=== PATIENT | male | born 1960 | race Caucasian/White ===

== ENCOUNTER 2023-01-15 17:45 | Inpatient (IN) | payer MEDICAID, MEDICARE ==
[~2023-01-15] VITALS: Ht 182.9 cm; Wt 102.1 kg
[2023-01-15 19:12] LABS: BASOPHILS % (AUTO) 0.8 % (0.0-2.0); EOSINOPHILS # (AUTO) 0.3 K/uL (0.0-0.7); EOSINOPHILS % (AUTO) 4.8 % (0.0-7.0); HEMATOCRIT 36.3 % (36.7-47.1); HEMOGLOBIN 12.6 g/dL (12.5-16.3); LYMPHOCYTES # (AUTO) 2.2 K/uL (0.8-4.8); LYMPHOCYTES % (AUTO) 36.4 % (20.5-51.5); MEAN CORPUSCULAR HEMOGLOBIN 31.3 uug (23.8-33.4); MEAN CORPUSCULAR HGB CONC 35 g/dL (32.5-36.3); MEAN CORPUSCULAR VOLUME 90.2 fL (73.0-96.2); MONOCYTES # (AUTO) 0.5 K/uL (0.1-1.30); MONOCYTES % (AUTO) 8.6 % (0.0-11.0); NEUTROPHILS % (AUTO) 49.4 % (38.5-71.5); PLATELET COUNT (AUTO) 188 K/uL (152-348); RED BLOOD CELL COUNT(AUTO) 4.02 MIL/uL (4.06-5.63); RED CELL DISTRIBUTION WIDTH 13.6 % (12.1-16.2)
[2023-01-15 19:28] LABS: ALANINE AMINOTRANSFERASE 22 U/L (16-63); ALBUMIN 3.5 g/dL (3.4-5.0); ALKALINE PHOSPHATASE 64 U/L (50-136); ASPARTATE AMINOTRANSFERASE 8 U/L (15-37); BILIRUBIN,DIRECT 0.1 mg/dL (0.0-0.2); BILIRUBIN,TOTAL 0.4 mg/dL (0.2-1.0); CALCIUM 9.5 mg/dL (8.5-10.1); CARBON DIOXIDE 24 mmol/L (21-32); CHLORIDE 105 mmol/L (98-107); CREATININE 1.4 mg/dL (0.6-1.3); GLUCOSE 197 mg/dL (74-106); POTASSIUM 4.1 mmol/L (3.5-5.1); SODIUM SERUM 140 mmol/L (136-145); TOTAL PROTEIN, SERUM 6.8 g/dL (6.4-8.2); UREA NITROGEN, BLOOD 34 mg/dL (7-18)
[2023-01-15 19:29] LABS: ETHANOL < 3 MG/DL (0-10)
[2023-01-15 19:30] LABS: ACETAMINOPHEN < 2.0 ug/mL (10-30); DIFFERENTIAL COMMENT 1
[2023-01-15] MEDS ORDERED: OLANZAPINE 10 MG VIAL IM ONE ×2 (19:30→19:36)
[2023-01-15 22:10] VITALS: BP 126/85; TEMP 97.7; O2SAT 98
[2023-01-15] MEDS ORDERED: ACETAMINOPHEN 325 MG TABLET PO PRN (22:15)
[2023-01-15] MEDS ORDERED: MAGNESIUM HYDROXIDE 30 ML LIQUID UDC PO PRN (22:15)
[2023-01-15] MEDS ORDERED: BLOOD SUGAR DIAGNOSTIC 1 EACH STRIP VI ONE (22:15)
[2023-01-15] MEDS ORDERED: MAG HYDROX/AL HYDROX/SIMETH 30 ML LIQUID UDC PO PRN (22:15)
[2023-01-16] MEDS ORDERED: GABA-532 PO (05:33)
[2023-01-16] MEDS ORDERED: FINA5TAB11 PO (05:33)
[2023-01-16] MEDS ORDERED: PROP10TA10 PO (05:33)
[2023-01-16] MEDS ORDERED: METF-442 PO (05:33)
[2023-01-16] MEDS ORDERED: PRAV40TA3 PO (05:33)
[2023-01-16 08:00] VITALS: BP 131/54; TEMP 97.2; O2SAT 97
[2023-01-16] MEDS: DIVALPROEX 250 MG TABLET.DR PO SCH ×2 (13:25→18:22)
[2023-01-16] MEDS: risperiDONE 1 MG TABLET PO SCH ×2 (13:25→20:24)
[2023-01-16 16:00] VITALS: BP 149/82; TEMP 97.6; O2SAT 97
[2023-01-16] MEDS ORDERED: HOME MED MISCELLANEOUS XX SCH (17:00)
[2023-01-16] MEDS ORDERED: DEXTROSE 50% 50 ML DISP.SYRIN IV PRN (17:15)
[2023-01-16] MEDS ORDERED: METFORMIN HCL 500 MG TABLET PO SCH (18:00)
[2023-01-16] MEDS: GABAPENTIN 100 MG CAPSULE PO SCH (18:22)
[2023-01-16 20:14] VITALS: BP 136/81; TEMP 98.2
[2023-01-16] MEDS: ATORVASTATIN 10 MG TABLET PO SCH (20:23)
[2023-01-16] MEDS: TEMAZEPAM 7.5 MG CAPSULE PO PRN (20:25)
[2023-01-16] MEDS: INSULIN REGULAR, HUMAN 300 UNIT/3 ML VIAL SQ PRN (21:30)
[2023-01-16] MEDS: BLOOD SUGAR DIAGNOSTIC 1 EACH STRIP VI SCH (21:32)
[2023-01-16] MEDS: PROPRANOLOL HCL 10 MG TABLET PO SCH (23:32)
[2023-01-17] MEDS: BLOOD SUGAR DIAGNOSTIC 1 EACH STRIP VI SCH ×4 (07:30→20:34)
[2023-01-17] MEDS: PROPRANOLOL HCL 10 MG TABLET PO SCH ×3 (07:42→22:00)
[2023-01-17 08:09] VITALS: BP 133/79; TEMP 98.2; O2SAT 94
[2023-01-17] MEDS: INSULIN REGULAR, HUMAN 300 UNIT/3 ML VIAL SQ PRN ×4 (09:02→20:39)
[2023-01-17] MEDS: GABAPENTIN 100 MG CAPSULE PO SCH ×2 (09:03→16:22)
[2023-01-17] MEDS: DIVALPROEX 250 MG TABLET.DR PO SCH ×2 (09:03→13:31)
[2023-01-17] MEDS: FINASTERIDE 5 MG TABLET PO SCH (09:04)
[2023-01-17] MEDS: risperiDONE 1 MG TABLET PO SCH ×3 (09:04→16:22)
[2023-01-17 09:15] LABS: BASOPHILS # (AUTO) 0.1 K/UL (0.0-0.2); BASOPHILS % (AUTO) 1.2 % (0.0-2.0); EOSINOPHILS # (AUTO) 0.3 K/uL (0.0-0.7); EOSINOPHILS % (AUTO) 4.9 % (0.0-7.0); HEMATOCRIT 38.8 % (36.7-47.1); HEMOGLOBIN 13.3 g/dL (12.5-16.3); LYMPHOCYTES # (AUTO) 1.5 K/uL (0.8-4.8); LYMPHOCYTES % (AUTO) 29.2 % (20.5-51.5); MEAN CORPUSCULAR HGB CONC 34 g/dL (32.5-36.3); MEAN CORPUSCULAR VOLUME 90.5 fL (73.0-96.2); MONOCYTES # (AUTO) 0.4 K/uL (0.1-1.30); MONOCYTES % (AUTO) 8.5 % (0.0-11.0); NEUTROPHILS # (AUTO) 2.9 K/uL (1.8-8.9); NEUTROPHILS % (AUTO) 56.2 % (38.5-71.5); PLATELET COUNT (AUTO) 205 K/uL (152-348); RED BLOOD CELL COUNT(AUTO) 4.29 MIL/uL (4.06-5.63); RED CELL DISTRIBUTION WIDTH 13.5 % (12.1-16.2); WHITE BLOOD COUNT (AUTO) 5.2 K/uL (3.6-10.2)
[2023-01-17 09:20] LABS: DIFFERENTIAL COMMENT 1
[2023-01-17 09:48] LABS: ALBUMIN 3.5 g/dL (3.4-5.0); BILIRUBIN,TOTAL 0.5 mg/dL (0.2-1.0); CREATININE 1.1 mg/dL (0.6-1.3); MAGNESIUM 1.8 mg/dL (1.8-2.4); POTASSIUM 4.6 mmol/L (3.5-5.1); TOTAL PROTEIN, SERUM 7.5 g/dL (6.4-8.2)
[2023-01-17 15:18] VITALS: BP 111/70; TEMP 98.2; O2SAT 99
[2023-01-17] MEDS: DIVALPROEX 500 MG TABLET.DR PO SCH (16:21)
[2023-01-17 20:01] VITALS: BP 133/79; TEMP 98; O2SAT 95
[2023-01-17] MEDS: ATORVASTATIN 10 MG TABLET PO SCH (20:28)
[2023-01-17] MEDS: BENZTROPINE MESYLATE 0.5 MG TABLET PO SCH (20:28)
[2023-01-17] MEDS ORDERED: risperiDONE 1 MG TABLET PO SCH (21:00)
[2023-01-17] MEDS: TEMAZEPAM 7.5 MG CAPSULE PO PRN (21:59)
[2023-01-18] MEDS: LORAZEPAM 1 MG TABLET PO PRN (02:51)
[2023-01-18] MEDS: PROPRANOLOL HCL 10 MG TABLET PO SCH ×3 (05:35→21:05)
[2023-01-18] MEDS: BLOOD SUGAR DIAGNOSTIC 1 EACH STRIP VI SCH ×4 (06:28→20:33)
[2023-01-18 07:11] LABS: PTH, INTACT 18 pg/mL (15-65)
[2023-01-18 07:56] VITALS: BP 142/84; TEMP 98.2; O2SAT 99
[2023-01-18 09:07] LABS: A/G RATIO 0.7 (0.7-1.7); ALBUMIN 2.9 g/dL (2.9-4.4); ALPHA-1-GLOBULIN 0.2 g/dL (0.0-0.4); ALPHA-2-GLOBULIN 0.7 g/dL (0.4-1.0); BETA GLOBULIN 1.5 g/dL (0.7-1.3); GAMMA GLOBULIN 1.7 g/dL (0.4-1.8); M-SPIKE Not Observed g/dL (Not Observed)
[2023-01-18] MEDS: BENZTROPINE MESYLATE 0.5 MG TABLET PO SCH ×2 (09:07→20:14)
[2023-01-18] MEDS: GABAPENTIN 100 MG CAPSULE PO SCH ×2 (09:08→17:01)
[2023-01-18] MEDS: risperiDONE 1 MG TABLET PO SCH ×2 (09:08→12:25)
[2023-01-18] MEDS: DIVALPROEX 250 MG TABLET.DR PO SCH ×2 (09:08→12:25)
[2023-01-18] MEDS: FINASTERIDE 5 MG TABLET PO SCH (09:08)
[2023-01-18] MEDS: INSULIN REGULAR, HUMAN 300 UNIT/3 ML VIAL SQ PRN ×4 (09:10→20:34)
[2023-01-18 15:26] VITALS: BP 122/72; TEMP 98; O2SAT 99
[2023-01-18] MEDS: risperiDONE 2 MG TABLET PO SCH ×2 (17:01→20:13)
[2023-01-18] MEDS: DIVALPROEX 500 MG TABLET.DR PO SCH (17:01)
[2023-01-18 19:49] VITALS: BP 128/77; TEMP 98.1; O2SAT 98
[2023-01-18] MEDS: ATORVASTATIN 10 MG TABLET PO SCH (20:13)
[2023-01-18] MEDS: OLANZAPINE 5 MG TABLET PO PRN (23:46)
[2023-01-19] MEDS: TEMAZEPAM 15 MG CAPSULE PO PRN ×2 (01:49→22:28)
[2023-01-19] MEDS: BLOOD SUGAR DIAGNOSTIC 1 EACH STRIP VI SCH ×6 (06:23→20:22)
[2023-01-19] MEDS: PROPRANOLOL HCL 10 MG TABLET PO SCH ×3 (06:23→22:28)
[2023-01-19 08:00] VITALS: BP 130/80; TEMP 97.6; O2SAT 98
[2023-01-19] MEDS: BENZTROPINE MESYLATE 0.5 MG TABLET PO SCH ×2 (09:08→20:21)
[2023-01-19] MEDS: GABAPENTIN 100 MG CAPSULE PO SCH ×2 (09:08→16:41)
[2023-01-19] MEDS: risperiDONE 2 MG TABLET PO SCH ×3 (09:08→20:21)
[2023-01-19] MEDS: FINASTERIDE 5 MG TABLET PO SCH (09:08)
[2023-01-19] MEDS: INSULIN REGULAR, HUMAN 300 UNIT/3 ML VIAL SQ PRN ×4 (09:24→20:25)
[2023-01-19] MEDS: DIVALPROEX 250 MG TABLET.DR PO SCH ×2 (09:25→14:09)
[2023-01-19 16:01] VITALS: BP 133/64; TEMP 98; O2SAT 98
[2023-01-19] MEDS: DIVALPROEX 500 MG TABLET.DR PO SCH (16:42)
[2023-01-19 20:00] VITALS: BP 119/74; TEMP 97.4; O2SAT 95
[2023-01-19] MEDS: ATORVASTATIN 10 MG TABLET PO SCH (20:21)
[2023-01-20] MEDS: BLOOD SUGAR DIAGNOSTIC 1 EACH STRIP VI SCH ×4 (06:53→21:31)
[2023-01-20] MEDS: PROPRANOLOL HCL 10 MG TABLET PO SCH ×3 (06:54→21:38)
[2023-01-20 07:56] VITALS: BP 128/64; TEMP 98.1; O2SAT 98
[2023-01-20] MEDS: risperiDONE 2 MG TABLET PO SCH ×3 (08:35→21:30)
[2023-01-20] MEDS: FINASTERIDE 5 MG TABLET PO SCH (08:35)
[2023-01-20] MEDS: DIVALPROEX 250 MG TABLET.DR PO SCH ×2 (08:35→12:26)
[2023-01-20] MEDS: BENZTROPINE MESYLATE 0.5 MG TABLET PO SCH ×2 (08:35→21:30)
[2023-01-20] MEDS: GABAPENTIN 100 MG CAPSULE PO SCH ×2 (08:35→16:58)
[2023-01-20 16:06] VITALS: BP 150/81; TEMP 98; O2SAT 98
[2023-01-20] MEDS: INSULIN REGULAR, HUMAN 300 UNIT/3 ML VIAL SQ PRN ×2 (16:43→21:33)
[2023-01-20] MEDS: DIVALPROEX 500 MG TABLET.DR PO SCH (16:58)
[2023-01-20 19:48] VITALS: BP 127/86; TEMP 98.3; O2SAT 96
[2023-01-20] MEDS: ATORVASTATIN 10 MG TABLET PO SCH (21:30)
[2023-01-20] MEDS: TEMAZEPAM 15 MG CAPSULE PO PRN (21:38)
[2023-01-21] MEDS: BLOOD SUGAR DIAGNOSTIC 1 EACH STRIP VI SCH ×4 (07:45→20:19)
[2023-01-21 07:46] VITALS: BP 128/84; TEMP 98.1; O2SAT 98
[2023-01-21] MEDS: DIVALPROEX 250 MG TABLET.DR PO SCH (08:20)
[2023-01-21] MEDS: risperiDONE 2 MG TABLET PO SCH ×3 (08:22→20:19)
[2023-01-21] MEDS: FINASTERIDE 5 MG TABLET PO SCH (08:23)
[2023-01-21] MEDS: BENZTROPINE MESYLATE 0.5 MG TABLET PO SCH (08:23)
[2023-01-21] MEDS: GABAPENTIN 100 MG CAPSULE PO SCH ×2 (08:27→16:29)
[2023-01-21] MEDS: INSULIN REGULAR, HUMAN 300 UNIT/3 ML VIAL SQ PRN ×4 (08:29→20:21)
[2023-01-21] MEDS: PROPRANOLOL HCL 10 MG TABLET PO SCH ×3 (09:14→22:16)
[2023-01-21] MEDS: BENZTROPINE MESYLATE 1 MG TABLET PO SCH ×2 (12:28→16:28)
[2023-01-21] MEDS: DIVALPROEX 500 MG TABLET.DR PO SCH ×2 (12:28→16:27)
[2023-01-21] MEDS ORDERED: BENZTROPINE MESYLATE 0.5 MG TABLET PO SCH (13:00)
[2023-01-21] MEDS ORDERED: DIVALPROEX 250 MG TABLET.DR PO SCH (13:00)
[2023-01-21 16:02] VITALS: BP 138/73; TEMP 98; O2SAT 98
[2023-01-21 19:46] VITALS: BP 113/74; TEMP 98.2; O2SAT 96
[2023-01-21] MEDS: ATORVASTATIN 10 MG TABLET PO SCH (20:19)
[2023-01-22] MEDS: LORAZEPAM 1 MG TABLET PO PRN (04:32)
[2023-01-22] MEDS: BLOOD SUGAR DIAGNOSTIC 1 EACH STRIP VI SCH ×4 (06:32→20:30)
[2023-01-22] MEDS: PROPRANOLOL HCL 10 MG TABLET PO SCH ×4 (06:32→22:20)
[2023-01-22] MEDS: DIVALPROEX 500 MG TABLET.DR PO SCH ×3 (08:00→18:36)
[2023-01-22 08:11] LABS: BASOPHILS % (AUTO) 0.7 % (0.0-2.0); EOSINOPHILS # (AUTO) 0.2 K/uL (0.0-0.7); EOSINOPHILS % (AUTO) 4.4 % (0.0-7.0); HEMATOCRIT 38.4 % (36.7-47.1); HEMOGLOBIN 12.9 g/dL (12.5-16.3); LYMPHOCYTES # (AUTO) 1.7 K/uL (0.8-4.8); LYMPHOCYTES % (AUTO) 33.2 % (20.5-51.5); MEAN CORPUSCULAR HEMOGLOBIN 30.9 uug (23.8-33.4); MEAN CORPUSCULAR HGB CONC 34 g/dL (32.5-36.3); MONOCYTES # (AUTO) 0.5 K/uL (0.1-1.30); MONOCYTES % (AUTO) 10.2 % (0.0-11.0); NEUTROPHILS # (AUTO) 2.6 K/uL (1.8-8.9); NEUTROPHILS % (AUTO) 51.5 % (38.5-71.5); PLATELET COUNT (AUTO) 180 K/uL (152-348); RED BLOOD CELL COUNT(AUTO) 4.18 MIL/uL (4.06-5.63); RED CELL DISTRIBUTION WIDTH 13.4 % (12.1-16.2)
[2023-01-22 08:19] LABS: DIFFERENTIAL COMMENT 1
[2023-01-22 08:41] VITALS: BP 142/76; TEMP 98; O2SAT 100
[2023-01-22 08:50] LABS: ALBUMIN 3.4 g/dL (3.4-5.0); BILIRUBIN,TOTAL 0.4 mg/dL (0.2-1.0); CALCIUM 9.7 mg/dL (8.5-10.1); CREATININE 1.1 mg/dL (0.6-1.3); POTASSIUM 4.7 mmol/L (3.5-5.1); TOTAL PROTEIN, SERUM 7.2 g/dL (6.4-8.2)
[2023-01-22] MEDS: risperiDONE 2 MG TABLET PO SCH ×3 (09:06→18:36)
[2023-01-22] MEDS: INSULIN REGULAR, HUMAN 300 UNIT/3 ML VIAL SQ PRN ×4 (09:06→20:33)
[2023-01-22] MEDS: BENZTROPINE MESYLATE 1 MG TABLET PO SCH ×3 (09:07→18:36)
[2023-01-22] MEDS: GABAPENTIN 100 MG CAPSULE PO SCH ×2 (09:07→18:36)
[2023-01-22] MEDS: FINASTERIDE 5 MG TABLET PO SCH (09:07)
[2023-01-22 15:24] VITALS: BP 127/76; TEMP 98; O2SAT 96
[2023-01-22 19:43] VITALS: BP 137/85; TEMP 98.1; O2SAT 97
[2023-01-22] MEDS: OLANZAPINE 5 MG TABLET PO SCH (20:30)
[2023-01-22] MEDS: ATORVASTATIN 10 MG TABLET PO SCH (20:30)
[2023-01-22] MEDS: TEMAZEPAM 15 MG CAPSULE PO PRN (21:57)
[2023-01-23] MEDS: PROPRANOLOL HCL 10 MG TABLET PO SCH ×3 (06:22→22:21)
[2023-01-23] MEDS: BLOOD SUGAR DIAGNOSTIC 1 EACH STRIP VI SCH ×4 (06:30→20:44)
[2023-01-23 07:51] VITALS: BP 145/94; TEMP 97.8; O2SAT 98
[2023-01-23] MEDS: FINASTERIDE 5 MG TABLET PO SCH (08:22)
[2023-01-23] MEDS: BENZTROPINE MESYLATE 1 MG TABLET PO SCH ×3 (08:22→17:00)
[2023-01-23] MEDS: DIVALPROEX 500 MG TABLET.DR PO SCH ×3 (08:22→17:00)
[2023-01-23] MEDS: risperiDONE 2 MG TABLET PO SCH ×3 (08:22→17:00)
[2023-01-23] MEDS: GABAPENTIN 100 MG CAPSULE PO SCH ×2 (08:22→17:00)
[2023-01-23] MEDS: INSULIN REGULAR, HUMAN 300 UNIT/3 ML VIAL SQ PRN ×4 (09:36→22:15)
[2023-01-23 15:10] VITALS: BP 168/72; TEMP 98.2; O2SAT 98
[2023-01-23 20:00] VITALS: BP 131/79; TEMP 97.9; O2SAT 97
[2023-01-23] MEDS: ATORVASTATIN 10 MG TABLET PO SCH (20:34)
[2023-01-23] MEDS: OLANZAPINE 5 MG TABLET PO SCH (20:34)
[2023-01-24] MEDS: OLANZAPINE 5 MG TABLET PO PRN (03:25)
[2023-01-24] MEDS: PROPRANOLOL HCL 10 MG TABLET PO SCH ×3 (06:23→21:45)
[2023-01-24] MEDS: BLOOD SUGAR DIAGNOSTIC 1 EACH STRIP VI SCH ×4 (06:30→20:56)
[2023-01-24 07:30] VITALS: BP 121/74; TEMP 98; O2SAT 99
[2023-01-24 08:21] LABS: CREATININE 1.1 mg/dL (0.6-1.3); POTASSIUM 4.1 mmol/L (3.5-5.1)
[2023-01-24] MEDS: FINASTERIDE 5 MG TABLET PO SCH (08:42)
[2023-01-24] MEDS: DIVALPROEX 500 MG TABLET.DR PO SCH ×3 (08:42→17:03)
[2023-01-24] MEDS: GABAPENTIN 100 MG CAPSULE PO SCH ×2 (08:42→17:03)
[2023-01-24] MEDS: BENZTROPINE MESYLATE 1 MG TABLET PO SCH ×3 (08:42→17:03)
[2023-01-24] MEDS: risperiDONE 2 MG TABLET PO SCH ×3 (08:42→17:03)
[2023-01-24 08:46] LABS: CALCIUM 9.3 mg/dL (8.5-10.1)
[2023-01-24] MEDS: INSULIN REGULAR, HUMAN 300 UNIT/3 ML VIAL SQ PRN ×3 (08:47→17:16)
[2023-01-24 14:57] VITALS: BP 158/76; TEMP 98.2; O2SAT 98
[2023-01-24 20:00] VITALS: BP 135/84; TEMP 98.1; O2SAT 98
[2023-01-24] MEDS: ATORVASTATIN 10 MG TABLET PO SCH (20:55)
[2023-01-24] MEDS: OLANZAPINE 5 MG TABLET PO SCH (20:55)
[2023-01-25] MEDS: PROPRANOLOL HCL 10 MG TABLET PO SCH ×3 (06:00→21:47)
[2023-01-25] MEDS: BLOOD SUGAR DIAGNOSTIC 1 EACH STRIP VI SCH ×4 (07:33→20:22)
[2023-01-25 08:05] VITALS: BP 102/60; TEMP 98; O2SAT 98
[2023-01-25] MEDS: DIVALPROEX 500 MG TABLET.DR PO SCH ×3 (08:37→17:08)
[2023-01-25] MEDS: BENZTROPINE MESYLATE 1 MG TABLET PO SCH ×3 (08:37→17:08)
[2023-01-25] MEDS: GABAPENTIN 100 MG CAPSULE PO SCH ×2 (08:37→17:11)
[2023-01-25] MEDS: FINASTERIDE 5 MG TABLET PO SCH (08:37)
[2023-01-25] MEDS: risperiDONE 2 MG TABLET PO SCH ×3 (08:37→17:08)
[2023-01-25 15:17] VITALS: BP 113/65; TEMP 97.8; O2SAT 95
[2023-01-25 20:00] VITALS: BP 123/54; TEMP 98; O2SAT 96
[2023-01-25] MEDS: ATORVASTATIN 10 MG TABLET PO SCH (20:16)
[2023-01-25] MEDS: OLANZAPINE 5 MG TABLET PO SCH (20:16)
[2023-01-25] MEDS: INSULIN REGULAR, HUMAN 300 UNITS/3 ML VIAL SQ PRN (20:24)
[2023-01-26] MEDS: PROPRANOLOL HCL 10 MG TABLET PO SCH ×3 (06:14→23:22)
[2023-01-26] MEDS: BLOOD SUGAR DIAGNOSTIC 1 EACH STRIP VI SCH ×4 (06:20→20:23)
[2023-01-26 08:01] VITALS: BP 142/80; TEMP 97.7; O2SAT 99
[2023-01-26] MEDS: DIVALPROEX 500 MG TABLET.DR PO SCH ×3 (08:22→16:49)
[2023-01-26] MEDS: BENZTROPINE MESYLATE 1 MG TABLET PO SCH ×3 (08:22→16:49)
[2023-01-26] MEDS: risperiDONE 2 MG TABLET PO SCH ×3 (08:22→16:49)
[2023-01-26] MEDS: GABAPENTIN 100 MG CAPSULE PO SCH ×2 (08:22→16:49)
[2023-01-26] MEDS: FINASTERIDE 5 MG TABLET PO SCH (08:22)
[2023-01-26] MEDS: INSULIN REGULAR, HUMAN 300 UNIT/3 ML VIAL SQ PRN ×3 (08:25→20:27)
[2023-01-26 16:01] VITALS: BP 124/79; TEMP 98; O2SAT 98
[2023-01-26 20:13] VITALS: BP 131/72; TEMP 98; O2SAT 98
[2023-01-26] MEDS: ATORVASTATIN 10 MG TABLET PO SCH (20:23)
[2023-01-26] MEDS: OLANZAPINE 5 MG TABLET PO SCH (20:23)
[2023-01-27] MEDS: PROPRANOLOL HCL 10 MG TABLET PO SCH ×3 (06:16→21:04)
[2023-01-27] MEDS: BLOOD SUGAR DIAGNOSTIC 1 EACH STRIP VI SCH ×4 (06:32→21:03)
[2023-01-27 07:42] VITALS: BP 117/69; TEMP 98; O2SAT 98
[2023-01-27] MEDS: DIVALPROEX 500 MG TABLET.DR PO SCH ×3 (08:24→16:45)
[2023-01-27] MEDS: risperiDONE 2 MG TABLET PO SCH ×3 (08:24→16:45)
[2023-01-27] MEDS: BENZTROPINE MESYLATE 1 MG TABLET PO SCH ×3 (08:24→16:45)
[2023-01-27] MEDS: FINASTERIDE 5 MG TABLET PO SCH (08:24)
[2023-01-27] MEDS: GABAPENTIN 100 MG CAPSULE PO SCH ×2 (08:25→16:45)
[2023-01-27] MEDS: INSULIN REGULAR, HUMAN 300 UNIT/3 ML VIAL SQ PRN ×3 (08:40→16:47)
[2023-01-27 14:34] VITALS: BP 116/68; TEMP 98; O2SAT 98
[2023-01-27 15:18] VITALS: BP 116/68; TEMP 98; O2SAT 98
[2023-01-27 19:49] VITALS: BP 128/70; TEMP 98.3; O2SAT 97
[2023-01-27] MEDS: OLANZAPINE 5 MG TABLET PO SCH (20:39)
[2023-01-27] MEDS: ATORVASTATIN 10 MG TABLET PO SCH (20:39)
[2023-01-27] MEDS: INSULIN REGULAR, HUMAN 300 UNITS/3 ML VIAL SQ PRN (20:41)
[2023-01-27] MEDS: TEMAZEPAM 15 MG CAPSULE PO PRN (23:07)
[2023-01-28] MEDS: PROPRANOLOL HCL 10 MG TABLET PO SCH ×2 (07:02→13:32)
[2023-01-28] MEDS: BLOOD SUGAR DIAGNOSTIC 1 EACH STRIP VI SCH ×3 (07:03→16:37)
[2023-01-28 08:00] VITALS: BP 96/60; TEMP 97.2; O2SAT 97
[2023-01-28] MEDS: GABAPENTIN 100 MG CAPSULE PO SCH ×2 (08:30→16:40)
[2023-01-28] MEDS: INSULIN REGULAR, HUMAN 300 UNIT/3 ML VIAL SQ PRN (08:30)
[2023-01-28] MEDS: FINASTERIDE 5 MG TABLET PO SCH (08:31)
[2023-01-28] MEDS: BENZTROPINE MESYLATE 1 MG TABLET PO SCH ×3 (08:31→16:39)
[2023-01-28] MEDS: risperiDONE 2 MG TABLET PO SCH ×3 (08:31→16:39)
[2023-01-28] MEDS: DIVALPROEX 500 MG TABLET.DR PO SCH ×3 (08:31→16:39)
[2023-01-28 16:09] VITALS: BP 134/69; TEMP 98.2; O2SAT 97
== END 2023-01-28 19:19 | DRG 885 ==
LOC: ER 17:52 → GPS 21:27
PROVIDERS: ADMIT Psychiatry & Neurology Psychosomatic Medicine; ATTEND Nurse Practitioner Acute Care
DX: F25.0 Schizoaffective disorder, bipolar type (principal); N17.0 Acute kidney failure with tubular necrosis; N18.9 Chronic kidney disease, unspecified; F03.911 Unspecified dementia, unspecified severity, with agitation; F03.94 Unspecified dementia, unspecified severity, with anxiety; F03.93 Unspecified dementia, unspecified severity, with mood disturbance; E78.5 Hyperlipidemia, unspecified; Z91.148 Patient's other noncompliance with medication regimen for other reason; Z79.899 Other long term (current) drug therapy; Z88.2 Allergy status to sulfonamides; Z88.8 Allergy status to other drugs, medicaments and biological substances; N40.0 Benign prostatic hyperplasia without lower urinary tract symptoms; E66.9 Obesity, unspecified; Z68.29 Body mass index [BMI] 29.0-29.9, adult; R26.89 Other abnormalities of gait and mobility; I12.9 Hypertensive chronic kidney disease with stage 1 through stage 4 chronic kidney disease, or unspecified chronic kidney disease; E11.22 Type 2 diabetes mellitus with diabetic chronic kidney disease; Z79.84 Long term (current) use of oral hypoglycemic drugs; Z91.81 History of falling; Z86.16 Personal history of COVID-19; M54.50 Low back pain, unspecified; M79.605 Pain in left leg
CPT/HCPCS: 36415; 80164; 83735; 83970; 84100; 84155; 84165; 85025; G0480; J1815; J2358; J3490